=== PATIENT | male | born 1945 | race Hispanic/Latino ===

== ENCOUNTER → 2024-07-11 | Day surgery (SDC) | payer MEDICARE ==
[2024-07-08 14:44] LABS: BASOPHILS % 0.3 % (0.0-1.0); EOSINOPHILS # (AUTO) 0.2 (0.0-0.4); EOSINOPHILS % 2.3 % (0.0-6.0); HEMATOCRIT 37.4 % (38.2-49.6); HEMOGLOBIN 12.2 g/dL (14.0-18.0); LYMPHOCYTES # (AUTO) 1.7 (1.0-3.2); LYMPHOCYTES % 24.8 % (18.0-39.1); MEAN CORPUSCULAR HEMOGLOBIN 29.5 pg (28-32); MEAN CORPUSCULAR HGB CONC 32.6 g/dL (31-35); MEAN CORPUSCULAR VOLUME 90.3 fL (81-99); MONOCYTES # (AUTO) 0.4 (0.2-0.8); NEUTROPHILS # (AUTO) 4.4 (2.1-6.9); NEUTROPHILS % 66.4 % (38.7-80.0); PLATELET COUNT 147 x10e3/uL (140-360); RED BLOOD COUNT 4.14 x10e6/uL (4.3-5.7); RED CELL DISTRIBUTION WIDTH 13.2 % (11.7-14.4); WHITE BLOOD COUNT 6.66 x10e3/uL (4.8-10.8)
[~2024-07-11] MED LIST: AMLODIPINE BESYL5 MG PO; ASPIRIN81 MG PO; B12 ACTIVE1000 MCG PO; CRESTOR40 MG PO; FINASTERIDE5 MG PO; FLOMAX0.4 MG PO; GLIPIZIDE5 MG PO; LOVASTATIN20 MG PO; METFORMIN HCL850 MG PO; NAPROXEN500 MG PO; VITAMIN D3 COM1 EACH PO; ZESTRIL10 MG PO
[2024-07-11] MEDS: LACTATED RINGER'S 1,000 ML ONE (06:34)
[2024-07-11 08:06] VITALS: TEMP 97.8
[2024-07-11 08:20] VITALS: BP 106/62; PULSE 73; RESP 15; O2SAT 99
== END | disposition home or self-care (01) ==
LOC: OR 05:40
PROVIDERS: ATTEND Internal Medicine Gastroenterology
DX: K22.70 Barrett's esophagus without dysplasia (principal); K29.50 Unspecified chronic gastritis without bleeding; K31.89 Other diseases of stomach and duodenum; K21.00 Gastro-esophageal reflux disease with esophagitis, without bleeding; K44.9 Diaphragmatic hernia without obstruction or gangrene; K64.8 Other hemorrhoids; I10 Essential (primary) hypertension; I25.10 Atherosclerotic heart disease of native coronary artery without angina pectoris; E78.5 Hyperlipidemia, unspecified; E11.9 Type 2 diabetes mellitus without complications; Z01.810 Encounter for preprocedural cardiovascular examination; Z01.812 Encounter for preprocedural laboratory examination; Z79.82 Long term (current) use of aspirin; Z79.84 Long term (current) use of oral hypoglycemic drugs; Z79.899 Other long term (current) drug therapy; Z95.5 Presence of coronary angioplasty implant and graft
CPT/HCPCS: 36415 ×2; 43239; 45378; 82948; 85025; 88305; 88342; 93005; J7121